=== PATIENT | male | born 1930 | race Caucasian/White ===

== ENCOUNTER 2017-11-18 15:30 | Emergency (ER) | payer MEDICARE, OTHER ==
--- NOTE | 2017-11-18 15:56 | ED Physician Documentation ---
Fall - HISTORIAN Historian: patient - HPI Stated Complaint: right rib pain after fall Chief Complaint: General Adult Onset: days ago (3) Where: home Context: tripped Associated Symptoms:: no loss of consciousness Location of Pain/Injury: chest (right side ) Injury to Right Extremity: none Injury to Left Extremity: none Further Comments: yes (He states he has a history of cancer and he is recieving a treatment that is expiramental. He states he slipped and he fell and he had some right sided pain that is now wrapping around to his right chest. He states it is worse with movement and he describes it as stabbing. He tried some advil and the pain did "ease up some" he denies any shortness of breath.) - ROS CONST: no problems - PAST HX Past History: none Allergies/Adverse Reactions: Allergies Allergy/AdvReac Type Severity Reaction Status Date / Time No Known Drug Allergies Allergy Unverified 07/06/14 14:57 Home Medications: Ambulatory Orders Medication Instructions Recorded Aspirin [Adult Low Dose Aspirin EC] 81 mg PO DAILY 11/18/17 - SOCIAL HX Smoking History: non-smoker Alcohol Use: none Drug Use: none - FAMILY HX Family History: none - REVIEWED ASSESSMENTS Nursing Assessment Reviewed: Yes Vitals Reviewed: Yes ED Results Lab/Radiology - Radiology Radiology Impressions: Examination: PA and lateral chest. History: FALL 3 DAYS AGO. CHEST PAIN FROM LATERAL TO FRONT ON RT SIDE (Hx) / FALL; RIGHT SIDE PAIN THAT RADIATES TO BACK (DICOM Hx) / FALL; RIGHT SIDE PAIN THAT RADIATES TO BACK (Pt comments) Comparison exam: None provided. Findings: PA lateral chest demonstrate a normal cardiac and mediastinal silhouette. Vascular calcifications involving the aortic arch. Right lung base linear densities/scarring. No focal infiltrate. No blunting of the costophrenic margins. left-sided beka cath. Osseous structures without acute appearing process. Impression: Right lung base scarring/atelectasis. No acute appearing infiltrate. No effusion. Electronically signed on Nov 18, 2017 4:49:29 PM COMEDIAN by: David Clay Physical Exam - Physical Exam General Appearance: no acute distress, alert Head: non-tender Neck: non-tender Eye: REJI ENT: nml external inspection Resp/CVS: chest non-tender, no ecchymosis, breath sounds nml, no resp. distress , heart sounds nml, rib tenderness (right mild with palpation ) Abdomen: soft, no organomegaly, normal bowel sounds Neuro: oriented x3, CN's nml as tested, sensation nml, motor nml, mood/affect nml, autism specialist nml, reflexes nml Back: normal inspection Extremities: atraumatic Joint: joints nml, nml ROM, Nml gait/weight bearing - Isabel Coma Score Eyes Open: Spontaneous Speech: Oriented Motor: Obeys Commands Discharge Clincal Impression: Chest pain Qualifiers: Chest pain type: other chest pain Qualified Code(s): R07.89 - Other chest pain Referrals: Primary Doctor,No [Primary Care Provider] - 2 Days Comments: 1. Naproxen/Advil for pain 2. Deep breaths 3. Follow up with PCP in 2-4 days 4. Return to ER for any shortness of breath,fever, pain , or concerns Condition: Stable Disposition: 01 HOME, SELF-CARE Decision to Admit: NO Date of Decison to Admit: 11/18/17 Decision Time: 16:58
[2017-11-18 15:57] VITALS: BP 150/95
--- NOTE | 2017-11-18 22:31 | Diagnostic Imaging Report ---
NARCISO WALDRON [facility] [id number] [facility] [address] [place], [place]. [address] Report Submission Date: Nov 18, 2017 4:49:29 PM GRIEF COUNSELOR Patient Study Name: AUSTIN MORFIN Date: Nov 18, 2017 4:04:57 PM GRIEF COUNSELOR Modality Type: CR Gender: M Description: CHEST : [birth year] Institution: [facility] Physician: NARCISO WALDRON Examination: PA and lateral chest. History: FALL 3 DAYS AGO. CHEST PAIN FROM LATERAL TO FRONT ON RT SIDE (Hx) / FALL; RIGHT SIDE PAIN THAT RADIATES TO BACK (DICOM Hx) / FALL; RIGHT SIDE PAIN THAT RADIATES TO BACK (Pt comments) Comparison exam: None provided. Findings: PA lateral chest demonstrate a normal cardiac and mediastinal silhouette. Vascular calcifications involving the aortic arch. Right lung base linear densities/scarring. No focal infiltrate. No blunting of the costophrenic margins. left-sided beka cath. Osseous structures without acute appearing process. Impression: Right lung base scarring/atelectasis. No acute appearing infiltrate. No effusion. Electronically signed on Nov 18, 2017 4:49:29 PM GRIEF COUNSELOR by: David CHAVEZ
== END 2017-11-18 17:01 | disposition home or self-care (01) ==
LOC: ED 15:30
DX: R07.89 Other chest pain (principal); W19.XXXA Unspecified fall, initial encounter
CPT/HCPCS: 71020; 71046; 99283